=== PATIENT | male | born 1945 | race Caucasian/White ===

== ENCOUNTER 2018-09-20 19:05 | Emergency (ER) | payer MEDICARE, BC ==
[2018-09-20] MEDS ORDERED: Ondansetron 4 MG/2 ML SDV IVPUSH ONE (19:44)
[2018-09-20] MEDS ORDERED: Morphine 4 MG/ML Syringe IVPUSH ONE (19:44)
[2018-09-20] MEDS ORDERED: Sodium Chloride 0.9% 10 ML Syringe FLUSH PRN (19:45)
[2018-09-20] MEDS ORDERED: Sodium Chloride 0.9% 1,000 ML IV ONE ×2 (19:45→21:35)
--- NOTE | 2018-09-20 19:51 | EDM.PDOC ---
ED HPI GENERAL MEDICAL PROBLEM - General Chief Complaint: Abdominal Pain Stated Complaint: ABDOMINAL PAIN Time Seen by Provider: 09/20/18 19:43 Source of Information: Reports: Patient History Limitations: Reports: No Limitations - History of Present Illness INITIAL COMMENTS - FREE TEXT/NARRATIVE: Patient is a 72-year-old gentleman who presents to the emergency department this evening with a complaint of abdominal pain. Patient states abdominal pain began 5 days ago, which had some mild cramping but has progressed and became much worse today. Patient had one hard bowel movement this morning. Patient has an umbilicus hernia of chronic nature. Patient denies nausea, vomiting, blood in stool, testicular pain, fever, out of country travel, or family members with similar symptoms. Onset: Gradual Onset Date: 09/16/18 Duration: Day(s):, Getting Worse Location: Reports: Abdomen Quality: Reports: Pressure, Other (Crampy) Severity: Mild Improves with: Reports: None Worsens with: Reports: None Context: Denies: Trauma Associated Symptoms: Reports: No Other Symptoms. Denies: Fever/Chills, Nausea/ Vomiting - Related Data Allergies Allergy/AdvReac Type Severity Reaction Status Date / Time No Known Drug Allergies Allergy Other Verified 09/20/18 19:24 Home Meds: Home Meds Acetaminophen [Acetaminophen Extra Strength] 500 mg PO QID PRN 09/20/18 [History ] Allopurinol [Zyloprim] 200 mg PO BEDTIME 09/20/18 [History] Aspirin [Adult Low Dose Aspirin EC] 81 mg PO DAILY 09/20/18 [History] Diclofenac Sodium [Voltaren] 75 mg PO BIDMEALS 09/20/18 [History] Lisinopril/Hydrochlorothiazide [Lisinopril-Hctz 20-12.5 mg Tab] 1 each PO DAILY 09/20/18 [History] Misoprostol [Cytotec] 200 mcg PO BIDMEALS 09/20/18 [History] atorvaSTATin [Lipitor] 10 mg PO DAILY 09/20/18 [History] ED ROS GENERAL - Review of Systems Review Of Systems: ROS reveals no pertinent complaints other than HPI. Constitutional: Reports: No Symptoms HEENT: Reports: No Symptoms Respiratory: Reports: No Symptoms Cardiovascular: Reports: No Symptoms Endocrine: Reports: No Symptoms GI/Abdominal: Reports: Abdominal Pain : Reports: No Symptoms Musculoskeletal: Reports: No Symptoms Skin: Reports: No Symptoms Neurological: Reports: No Symptoms Psychiatric: Reports: No Symptoms Hematologic/Lymphatic: Reports: No Symptoms Immunologic: Reports: No Symptoms ED EXAM, GI/ABD - Physical Exam Exam: See Below Exam Limited By: No Limitations General Appearance: Alert, WD/WN, No Apparent Distress Throat/Mouth: Normal Inspection, Normal Oropharynx, No Airway Compromise Respiratory/Chest: No Respiratory Distress, Lungs Clear, Normal Breath Sounds, No Accessory Muscle Use, Chest Non-Tender Cardiovascular: Regular Rate, Rhythm, No Murmur GI/Abdominal Exam: Distended, Tender (Right lower and suprapubic region), Hernia (At the umbilicus, reducible). No: Guarding, Rigid, Rebound (Male) Exam: Hernia (Umbilicus) Back Exam: Normal Inspection. No: CVA Tenderness (L), CVA Tenderness (R) Extremities: Normal Inspection, No Pedal Edema, Normal Capillary Refill Neurological: Alert, Oriented, Normal Cognition Psychiatric: Normal Affect, Normal Mood Skin Exam: Warm, Dry, Intact, Normal Color, No Rash Course - Vital Signs Last Recorded V/S: Last Vital Signs Temp 97.7 F 09/20/18 19:26 Pulse 87 09/20/18 19:26 Resp 20 09/20/18 19:26 BP 116/57 L 09/20/18 19:26 Pulse Ox 96 09/20/18 19:26 - Orders/Labs/Meds Orders: Active Orders 24 hr Category Date Time Status Peripheral IV Care [RC] . DIRECTED Care 09/20/18 19:45 Ordered Sodium Chloride 0.9% [Saline Flush] Med 09/20/18 19:45 Ordered 10 ml FLUSH Q8HR PRN metroNIDAZOLE/Normal Saline [Flagyl 500 MG in NS 100 ML Med 09/20/18 21:16 Ordered ] 500 mg Premix Bag 1 bag IV ONETIME Peripheral IV Insertion Adult [OM.PC] Routine Oth 09/20/18 19:45 Ordered Medication Orders Metronidazole 500 mg/ Premix 100 mls @ 100 mls/hr IV ONETIME ONE Stop: 09/20/18 22:15 Sodium Chloride (Saline Flush) 10 ml FLUSH Q8HR PRN PRN Reason: keep vein open Last Admin: 09/20/18 20:05 Dose: 10 ml Labs: Laboratory Tests 09/20/18 09/20/1809/20/19 Range/Units 19:30 19:30 19:30 WBC 13.57 H (5.00-10.00) 10^3/uL RBC 4.25 L (4.50-6.00) 10^6/uL Hgb 13.5 (13.0-17.0) g/dL Hct 39.5 L (40.0-52.0) % MCV 92.9 H (82.0-92.0) fL MCH 31.8 H (27.0-31.0) pg MCHC 34.2 (32.0-36.0) g/dL RDW 14.3 (11.5-14.5) % Plt Count 388 (150-400) 10^3/uL MPV 9.2 (7.4-10.4) fL Immature Gran % (Auto) 0.3 (0.0-5.0) % Neut % (Auto) 84.9 H (50.0-70.0) % Lymph % (Auto) 8.6 L (20.0-40.0) % Wallace % (Auto) 6.0 (2.0-8.0) % Eos % (Auto) 0.1 L (1.0-3.0) % Baso % (Auto) 0.1 (0.0-1.0) % Immature Gran # (Auto) 0.04 (0.00-0.50) 10^3/uL Neut # (Auto) 11.52 H (2.50-7.00) 10^3/uL Lymph # (Auto) 1.17 (1.00-4.00) 10^3/uL Wallace # (Auto) 0.81 H (0.10-0.80) 10^3/uL Eos # (Auto) 0.01 L (0.10-0.30) 10^3/uL Baso # (Auto) 0.02 (0.00-0.10) 10^3/uL Sodium 134 L (136-145) mmol/L Potassium 4.2 (3.3-5.3) mmol/L Chloride 100 (98-115) mmol/L Carbon Dioxide 22.9 (21.0-32.0) mmol/L Anion Gap 15.3 H (5-15) mmol/L BUN 43 H (6-25) mg/dL Creatinine 1.64 H (0.51-1.17) mg/dL Est Cr Clr Drug Dosing 39.97 mL/min Estimated GFR (MDRD) 42 mL/min Glucose 122 H (75 - 99) mg/dL Calcium 8.9 (8.7-10.3) mg/dL Total Bilirubin 0.4 (0.2-1.0) mg/dL AST 44 H (15-37) U/L ALT 43 (12-78) U/L Alkaline Phosphatase 227 H (46-116) IU/L Total Protein 7.5 (6.4-8.2) g/dL Albumin 3.07 (3.00-4.80) g/dL Specimen Type Urinvoid Urine Color Yellow (YELLOW) Urine Appearance Clear (CLEAR) Urine pH 5.0 (5.0-9.0) Ur Specific [place] >= 1.030 (1.005-1.030) Urine Protein 30 H (NEGATIVE) mg/dL Urine Glucose (UA) Negative (NEGATIVE) mg/dL Urine Ketones Trace H (NEGATIVE) mg/dL Urine Occult Blood Negative (NEGATIVE) Urine Nitrite Negative (NEGATIVE) Urine Bilirubin Small H (NEGATIVE) Urine Urobilinogen 0.2 (0.2-1.0) E.U./dL Ur Leukocyte Esterase Negative (NEGATIVE) Urine RBC 0-5 (0-5) /HPF Urine WBC 5-10 H (0-5) /HPF Ur Epithelial Cells Occasional /LPF Amorphous Sediment Moderate H (0/HPF) /HPF Urine Bacteria Few (NONE TO FEW) /HPF Hyaline Casts Few H (NEGATIVE) /LPF Meds: Medications Generic Name Dose Route Start Last Admin Trade Name Freq PRN Reason Stop Dose Admin Metronidazole 500 mg/ Premix 100 mls @ 100 mls/hr 09/20/18 21:16 IV 09/20/18 22:15 ONETIME ONE Sodium Chloride 10 ml 09/20/18 19:45 09/20/18 20:05 Saline Flush FLUSH 10 ml Q8HR PRN Administration keep vein open Discontinued Medications Generic Name Dose Route Start Last Admin Trade Name Freq PRN Reason Stop Dose Admin Ceftriaxone Sodium 1 gm 09/20/18 21:16 Rocephin IVPUSH 09/20/18 21:17 ONETIME ONE Sodium Chloride 1,000 mls @ 999 mls/hr 09/20/18 19:45 09/20/18 20:03 Normal Saline IV 09/20/18 20:45 999 mls/hr .BOLUS ONE Administration Morphine Sulfate 4 mg 09/20/18 19:44 09/20/18 19:54 Morphine IVPUSH 09/20/18 19:45 4 mg ONETIME ONE Administration Ondansetron HCl 4 mg 09/20/18 19:44 09/20/18 19:53 Zofran IVPUSH 09/20/18 19:45 4 mg ONETIME ONE Administration - Radiology Interpretation Free Text/Narrative:: CT abdomen and pelvis without contrast shows acute appendicitis with suspected perforation - Re-Assessments/Exams Free Text/Narrative Re-Assessment/Exam: 09/20/18 21:17 Patient afebrile, vital signs stable, pain control. Discussed case with Gen Checo. surgery at [facility]. She accepts patient and patient will be transferred via ground ambulance for acute care. Departure - Departure Time of Disposition: 21:18 Disposition: DC/Tfer to Acute Hospital 02 Condition: Fair Clinical Impression: Appendicitis Qualifiers: Appendicitis type: acute appendicitis Acute appendicitis type: unspecified acute appendicitis type Qualified Code(s): K35.80 - Unspecified acute appendicitis - Discharge Information Referrals: Ed Bernabe PA-C [Primary Care Provider] - Forms: ED Department Discharge - My Orders Last 24 Hours: My Active Orders 09/20/18 19:45 Peripheral IV Care [RC] . DIRECTED Sodium Chloride 0.9% [Saline Flush] 10 ml FLUSH Q8HR PRN Peripheral IV Insertion Adult [OM.PC] Routine 09/20/18 21:16 metroNIDAZOLE/Normal Saline [Flagyl 500 MG in NS 100 ML] 500 mg Premix Bag 1 bag IV ONETIME - Assessment/Plan Last 24 Hours: My Active Orders 09/20/18 19:45 Peripheral IV Care [RC] . DIRECTED Sodium Chloride 0.9% [Saline Flush] 10 ml FLUSH Q8HR PRN Peripheral IV Insertion Adult [OM.PC] Routine 09/20/18 21:16 metroNIDAZOLE/Normal Saline [Flagyl 500 MG in NS 100 ML] 500 mg Premix Bag 1 bag IV ONETIME Assessment:: Appendicitis Plan: Transfer to [facility]
[2018-09-20 20:07] LABS: ANION GAP 15.3 mmol/L (5-15)
--- NOTE | 2018-09-20 20:55 | CT ---
[id number] CT/CT Abdomen Pelvis WO IV EXAM: CT Abdomen Pelvis WO IV CLINICAL DATA: ABD PAIN COMPARISON STUDY: None. FINDINGS: Lung bases are clear. Mild changes of diffuse hepatic steatosis. Cholelithiasis. No evidence of acute cholecystitis. Pancreas, adrenal glands, and kidneys are unremarkable. Small bowel containing umbilical hernia. No evidence of bowel obstruction.Small sliding-type hiatus hernia. Changes of acute appendicitis, including possible sequela of early perforation at its tip with a trace amount of pneumoperitoneum. No abscess. Mild reactive change in adjacent small bowel and mesentery. Trace amount of reactive free fluid in the pelvis as well. Advanced changes of right femoroacetabular osteoarthritis. Mild to moderate changes of spondylosis diffusely throughout the spine. IMPRESSION: Acute appendicitis with possible changes of early perforation at its tip. No abscess. Yakov Patel MD 09/20/18 [id number] Thank you for allowing us to participate in the care of your patient.
[2018-09-20] MEDS ORDERED: cefTRIAXone 1 GM Vial IVPUSH ONE (21:16)
[2018-09-20] MEDS ORDERED: metroNIDAZOLE/Normal Saline 500 MG in Premix Bag 1 BAG IV ONE (21:16)
[2018-09-20] MEDS ORDERED: Sodium Chloride 0.9% 1,000 ML ONE (21:23)
[2018-09-20] MEDS ORDERED: Acetaminophen 325 MG Tab PO ONE (21:52)
== END 2018-09-20 22:00 ==
LOC: KA.ED 19:05
DX: K35.80 Unspecified acute appendicitis (principal); Z79.82 Long term (current) use of aspirin; Z79.899 Other long term (current) drug therapy
CPT/HCPCS: 36415; 74176; 80053; 81001; 85025; 96361; 96365; 96375; 99285-25; A4217; A9270-GY; J0696; J2270; J2405; J3490; J7030